=== PATIENT | female | born 1985 | race Caucasian/White ===

== ENCOUNTER 2017-03-14 19:06 | Emergency (ER) | payer OTHER | END 2017-03-14 20:09 | disposition home or self-care (01) | LOC: ER1 19:06 | DX: J02.9 Acute pharyngitis, unspecified (principal); F17.210 Nicotine dependence, cigarettes, uncomplicated | CPT/HCPCS: 96372; 99282 ==

== ENCOUNTER 2020-10-22 22:52 | Emergency (ER) | payer OTHER ==
[2020-10-22 23:22] LABS: HEMOGLOBIN 15.4 gm/dl (12.3-15.3); RED BLOOD COUNT 5.19 M/UL (4.00-5.10); WHITE BLOOD COUNT 19.8 K/UL (4.5-11.0)
[2020-10-22 23:45] LABS: BUN/CREATININE RATIO 13 (0-10)
[2020-10-23 04:04] LABS: HEMOGLOBIN 14.1 gm/dl (12.3-15.3); RED BLOOD COUNT 4.81 M/UL (4.00-5.10)
[2020-10-23 04:06] LABS: WHITE BLOOD COUNT 10.7 K/UL (4.5-11.0)
== END 2020-10-23 05:18 | disposition home or self-care (01) ==
LOC: ER1 22:52
PROVIDERS: Family Medicine
DX: T42.6X1A Poisoning by other antiepileptic and sedative-hypnotic drugs, accidental (unintentional), initial encounter (principal); R25.9 Unspecified abnormal involuntary movements
CPT/HCPCS: 80053; 80307; 81001; 82550; 82553; 83605; 83735; 83874; 84484; 84702; 85025; 93005; 99284; G0480; J2060

== ENCOUNTER 2021-03-20 18:39 | Inpatient (IN) | payer OTHER ==
[~2021-03-20] VITALS: Ht 162.6 cm; Wt 83.3 kg
[2021-03-20 21:21] LABS: HEMOGLOBIN 15.3 gm/dl (12.3-15.3); RED BLOOD COUNT 5.08 M/UL (4.00-5.10); WHITE BLOOD COUNT 7.6 K/UL (4.5-11.0)
[2021-03-20 21:44] LABS: BUN/CREATININE RATIO 16 (0-10)
[2021-03-21 07:08] LABS: HEMOGLOBIN 13.5 gm/dl (12.3-15.3); RED BLOOD COUNT 4.58 M/UL (4.00-5.10); WHITE BLOOD COUNT 8.2 K/UL (4.5-11.0)
[2021-03-21 07:35] LABS: BUN/CREATININE RATIO 10 (0-10)
[2021-03-21] MEDS ORDERED: NEURONTIN100 MG PO (12:07)
[2021-03-21] MEDS ORDERED: IBUPROFEN400 MG PO (12:09)
[2021-03-21] MEDS ORDERED: SUBOXONE 8 MG-1 EACH SL (12:09)
== END 2021-03-21 15:16 | disposition left against medical advice (07) | DRG 917 ==
LOC: ER1 18:39 → CDU 22:05 → CCU 22:05
PROVIDERS: Emergency Medicine; ADMIT Internal Medicine
PROC: 0BH17EZ Insertion of Endotracheal Airway into Trachea, Via Natural or Artificial Opening (ICD-10-PCS; principal; 2021-03-20)
PROC: 5A1935Z Respiratory Ventilation, Less than 24 Consecutive Hours (ICD-10-PCS; 2021-03-20)
DX: T43.621A Poisoning by amphetamines, accidental (unintentional), initial encounter (principal); G92 Toxic encephalopathy; J96.01 Acute respiratory failure with hypoxia; J98.11 Atelectasis; F15.121 Other stimulant abuse with intoxication delirium; F11.121 Opioid abuse with intoxication delirium; G89.29 Other chronic pain; E87.6 Hypokalemia; Z79.899 Other long term (current) drug therapy; Z20.822 Contact with and (suspected) exposure to COVID-19; V00.831A Fall from motorized mobility scooter, initial encounter
CPT/HCPCS: 31500; 36600; 70450; 71045; 71260; 72125; 72128; 72131; 80053; 80307; 81001; 82550; 82553; 82803; 83605; 84484; 85025; 85610; 85730; 86850; 86900; 86901; 87040; 93005; 94002; 94003; 94760; 99285; C9113; G0480; J1650; J2704; J3480; Q9967; U0002

== ENCOUNTER 2021-11-29 23:30 | Emergency (ER) | payer OTHER ==
[~2021-11-29 23:30] MED LIST: IBUPROFEN400 MG PO; NEURONTIN100 MG PO; SUBOXONE 8 MG-1 EACH SL
[2021-11-30 01:14] LABS: RED BLOOD COUNT 5.2 M/UL (4.00-5.10); WHITE BLOOD COUNT 16.5 K/UL (4.5-11.0)
[2021-11-30 03:26] LABS: BUN/CREATININE RATIO 14 (0-10)
== END 2021-11-30 05:25 | disposition home or self-care (01) ==
LOC: ER1 23:30
PROVIDERS: Family Medicine
DX: G93.40 Encephalopathy, unspecified (principal); G89.29 Other chronic pain; Z20.822 Contact with and (suspected) exposure to COVID-19
CPT/HCPCS: 51702; 70450; 71045; 80053; 80307; 81001; 82140; 82550; 82553; 83605; 83874; 84484; 85025; 93005; 99285; G0480; J2310; U0002